=== PATIENT | female | born 1970 | race Caucasian/White ===

== ENCOUNTER 2019-04-13 03:03 | Emergency (ER) | payer OTHER ==
[~2019-04-13] VITALS: Ht 165.1 cm; Wt 45.5 kg
[2019-04-13 03:07] VITALS: BP 139/88
[2019-04-13] MEDS ORDERED: HALOPERIDOL LACTATE 5 MG/ML VIAL IM ONE (03:45)
[2019-04-13] MEDS ORDERED: LORazepam 2 MG/ML VIAL IM ONE (03:45)
[2019-04-13] MEDS ORDERED: DiphenhydrAMINE HCL 50 MG/ML VIAL IM ONE (03:45)
== END 2019-04-13 05:21 | disposition home or self-care (01) ==
LOC: EMS 03:06
DX: F41.9 Anxiety disorder, unspecified (principal); F19.10 Other psychoactive substance abuse, uncomplicated; Z98.51 Tubal ligation status

== ENCOUNTER 2019-04-13 08:55 | Inpatient (IN) | payer MEDICAID, OTHER ==
[~2019-04-13] VITALS: Ht 162.6 cm; Wt 52.2 kg
[2019-04-13 09:54] LABS: BASOPHILS % (AUTO) 0.2 % (0.0-2.0); EOSINOPHILS % (AUTO) 0 % (1.0-6.0); HEMATOCRIT 37.8 % (36-46); HEMOGLOBIN 12.5 g/dL (12.0-16.0); LYMPHOCYTES # (AUTO) 1.1 K/uL (1.0-4.8); LYMPHOCYTES % (AUTO) 13.4 % (22.0-44.0); MEAN CORPUSCULAR HEMOGLOBIN 30.1 pg (26.0-34.0); MEAN CORPUSCULAR VOLUME 91 fL (80-100); MONOCYTES # (AUTO) 0.4 K/uL (0.1-1.0); MONOCYTES % (AUTO) 4.8 % (2.0-9.0); NEUTROPHILS # (AUTO) 6.4 K/uL (1.8-7.7); NEUTROPHILS % (AUTO) 81.6 % (40.0-70.0); PLATELET COUNT (AUTO) 215 K/uL (150-450); RED BLOOD CELL COUNT(AUTO) 4.13 MIL/uL (4.00-5.20); RED CELL DISTRIBUTION WIDTH 12.9 % (11.5-14.5)
[2019-04-13 10:04] LABS: ANION GAP 9 mmol/L (8-16); CALCIUM, TOTAL 9.1 mg/dL (8.8-10.5); CARBON DIOXIDE 25 mmol/L (22-29); CHLORIDE 104 mmol/L (98-107); CREATININE 0.75 mg/dL (0.60-1.30); GLOMERULAR FILTR. RATE CALC > 60 mL/min (>60); GLUCOSE,RANDOM 126 mg/dL (70-110); POTASSIUM 3.9 mmol/L (3.5-5.1); SODIUM SERUM 138 mmol/L (136-145); UREA NITROGEN, BLOOD 12 mg/dL (7-18)
[2019-04-13 10:10] LABS: ALANINE AMINOTRANSFERASE 19 U/L (12-78); ALKALINE PHOSPHATASE 63 U/L (46-116); ASPARTATE AMINOTRANSFERASE 20 U/L (15-37); BILIRUBIN,TOTAL 0.4 mg/dL (0.1-1.0); TOTAL PROTEIN, SERUM 7.5 g/dL (6.4-8.2)
[2019-04-13] MEDS ORDERED: ZOLPIDEM TARTRATE 10 MG TABLET PO PRN (10:45)
[2019-04-13] MEDS ORDERED: IBUPROFEN 400 MG TABLET PO PRN ×2 (11:00→21:15)
[2019-04-13] MEDS ORDERED: ACETAMINOPHEN 325 MG TABLET PO PRN ×2 (11:00→21:15)
[2019-04-13 11:47] LABS: AMPHET/METH SCREEN,URINE NEGATIVE (NEGATIVE); BARBITURATE SCREEN, URINE NEGATIVE (NEGATIVE); BENZODIAZEPINES SCREEN,URINE NEGATIVE (NEGATIVE); CANNABINOID SCREEN,URINE NEGATIVE (NEGATIVE); COCAINE SCREEN,URINE NEGATIVE (NEGATIVE); METHADONE SCREEN, URINE NEGATIVE (NEGATIVE); OPIATE SCREEN,URINE NEGATIVE (NEGATIVE)
[2019-04-13 11:52] LABS: PHENCYCLIDINE SCREEN,URINE NEGATIVE (NEGATIVE)
[2019-04-13 20:42] VITALS: BP 123/65
[2019-04-13] MEDS ORDERED: LOPERAMIDE HCL 2 MG CAPSULE PO PRN (21:15)
[2019-04-13] MEDS ORDERED: ONDANSETRON HCL 4 MG TABLET PO PRN (21:15)
[2019-04-13] MEDS ORDERED: NICOTINE 14 MG/24 HOUR PATCH TD PRN (21:15)
[2019-04-13] MEDS ORDERED: MAGNESIUM HYDROXIDE SUSPENSION 30 ML UDCUP PO PRN (21:15)
[2019-04-13] MEDS ORDERED: PETROLATUM,WHITE 28 GM JELLY TP PRN (21:15)
[2019-04-13] MEDS ORDERED: MAG HYDROX/AL HYDROX/SIMETH ES 30 ML SUSPENSION UDCUP PO PRN (21:15)
[2019-04-13] MEDS ORDERED: DOCUSATE SODIUM 100 MG CAPSULE PO PRN (21:15)
[2019-04-13] MEDS ORDERED: GuaiFENesin/D-METHORPHAN [SUGAR-FREE] 200-20MG/10 ML SYRUP UDCUP PO PRN (21:15)
[2019-04-13] MEDS ORDERED: ALBUTEROL SULFATE HFA 90 MCG/PUFF 8 GM INHALER IH PRN (21:15)
[2019-04-13] MEDS ORDERED: CloNIDine HCL 0.1 MG TABLET PO PRN (21:15)
[2019-04-14 01:31] VITALS: BP 140/81
[2019-04-14] MEDS: LORazepam 2 MG TABLET PO PRN ×3 (01:32→10:41)
[2019-04-14] MEDS: HALOPERIDOL 5 MG TABLET PO PRN ×2 (01:32→10:41)
[2019-04-14 06:32] VITALS: BP 137/77
[2019-04-14 08:09] VITALS: BP 136/90
[2019-04-14 08:18] LABS: BASOPHILS % (AUTO) 0.4 % (0.0-2.0); EOSINOPHILS % (AUTO) 0.7 % (1.0-6.0); HEMATOCRIT 40.4 % (36-46); HEMOGLOBIN 13.3 g/dL (12.0-16.0); LYMPHOCYTES # (AUTO) 1.7 K/uL (1.0-4.8); LYMPHOCYTES % (AUTO) 29.9 % (22.0-44.0); MEAN CORPUSCULAR HEMOGLOBIN 30.2 pg (26.0-34.0); MEAN CORPUSCULAR VOLUME 91 fL (80-100); MONOCYTES # (AUTO) 0.5 K/uL (0.1-1.0); MONOCYTES % (AUTO) 8.7 % (2.0-9.0); NEUTROPHILS # (AUTO) 3.5 K/uL (1.8-7.7); NEUTROPHILS % (AUTO) 60.3 % (40.0-70.0); PLATELET COUNT (AUTO) 233 K/uL (150-450); RED BLOOD CELL COUNT(AUTO) 4.42 MIL/uL (4.00-5.20); RED CELL DISTRIBUTION WIDTH 12.6 % (11.5-14.5)
[2019-04-14 08:38] LABS: HEMOGLOBIN A1C 5.7 % (4.5-6.2)
[2019-04-14 08:59] LABS: ALANINE AMINOTRANSFERASE 19 U/L (12-78); ALKALINE PHOSPHATASE 65 U/L (46-116); ANION GAP 11 mmol/L (8-16); ASPARTATE AMINOTRANSFERASE 19 U/L (15-37); BILIRUBIN,TOTAL 0.4 mg/dL (0.1-1.0); CALCIUM, TOTAL 8.9 mg/dL (8.8-10.5); CARBON DIOXIDE 27 mmol/L (22-29); CHLORIDE 103 mmol/L (98-107); CHOL/HDL RATIO 2.1 (3.9-5.7); CHOLESTEROL 165 mg/dL (131-200); CREATININE 0.79 mg/dL (0.60-1.30); GLOMERULAR FILTR. RATE CALC > 60 mL/min (>60); GLUCOSE,RANDOM 102 mg/dL (70-110); HDL CHOLESTEROL 80 mg/dL (40-60); LDL CHOL (CALC.) 76 mg/dL (0-130); POTASSIUM 3.7 mmol/L (3.5-5.1); SODIUM SERUM 141 mmol/L (136-145); THYROID STIMULATING HORMONE 1.46 uIU/mL (0.36-3.74); TOTAL PROTEIN, SERUM 7.7 g/dL (6.4-8.2); TRIGLYCERIDES 45 mg/dL (15-150); UREA NITROGEN, BLOOD 11 mg/dL (7-18)
[2019-04-14] MEDS: DIVALPROEX SODIUM 500 MG DR TABLET PO SCH ×2 (09:11→21:00)
[2019-04-14] MEDS: RisperiDONE 1 MG TABLET PO SCH ×2 (09:11→21:00)
[2019-04-15 08:05] VITALS: BP 112/52
[2019-04-15] MEDS: LORazepam 2 MG TABLET PO PRN ×2 (08:20→20:12)
[2019-04-15] MEDS: RisperiDONE 1 MG TABLET PO SCH ×2 (08:20→20:12)
[2019-04-15] MEDS: DIVALPROEX SODIUM 500 MG DR TABLET PO SCH ×2 (08:20→20:12)
[2019-04-15 16:18] VITALS: BP 107/76
[2019-04-16 06:43] VITALS: BP 124/71
[2019-04-16] MEDS: DIVALPROEX SODIUM 500 MG DR TABLET PO SCH ×2 (09:48→20:30)
[2019-04-16] MEDS: RisperiDONE 1 MG TABLET PO SCH (09:48)
[2019-04-16 16:04] VITALS: BP 105/80
[2019-04-16] MEDS ORDERED: RisperiDONE 2 MG TABLET PO SCH (21:00)
[2019-04-17 06:39] VITALS: BP 116/63
[2019-04-17 08:11] VITALS: BP 136/58
[2019-04-17] MEDS: DIVALPROEX SODIUM 500 MG DR TABLET PO SCH ×2 (08:30→20:33)
[2019-04-17 16:03] VITALS: BP 110/78
[2019-04-17] MEDS: RisperiDONE 1 MG TABLET PO SCH (20:33)
[2019-04-18 06:27] VITALS: BP 133/69
[2019-04-18 08:14] VITALS: BP_SYST 116
[2019-04-18] MEDS: DIVALPROEX SODIUM 500 MG DR TABLET PO SCH ×2 (08:44→20:18)
[2019-04-18 16:01] VITALS: BP 101/73
[2019-04-18] MEDS: RisperiDONE 1 MG TABLET PO SCH (20:18)
[2019-04-19 02:31] VITALS: BP 109/75
[2019-04-19 08:05] VITALS: BP 122/66
[2019-04-19] MEDS: DIVALPROEX SODIUM 500 MG DR TABLET PO SCH (08:15)
[2019-04-19] MEDS ORDERED: DIVA250T4 PO (10:36)
[2019-04-19] MEDS ORDERED: RISP1TAB89 PO (10:37)
== END 2019-04-19 12:10 | disposition home or self-care (01) | DRG 750 ==
LOC: EMS 08:57 → B3A 18:26
PROVIDERS: ADMIT Psychiatry & Neurology Psychiatry; ATTEND Psychiatry & Neurology Psychiatry
DX: F25.0 Schizoaffective disorder, bipolar type (principal); G44.209 Tension-type headache, unspecified, not intractable; K59.00 Constipation, unspecified; Z79.899 Other long term (current) drug therapy; R73.9 Hyperglycemia, unspecified
CPT/HCPCS: 83036; 84443; G0480; Q0162